=== PATIENT | female | born 1965 | race African-American/Black ===

== ENCOUNTER 2016-07-10 14:45 | Emergency (ER) | payer OTHER ==
[~2016-07-10] VITALS: Ht 175.3 cm; Wt 90.7 kg
--- NOTE | 2016-07-10 15:45 | ED NEURO DEFICIT/STROKE ---
History of Present Illness General Chief Complaint: General Adult Stated Complaint: BILATERAL UPPER EXT NUMBNESS X 3WKS Source: patient Exam Limitations: no limitations Vital Signs & Intake/Output Vital Signs & Intake/Output Vital Signs Date Time Temp Pulse Resp B/P B/P Pulse O2 O2 Flow FiO2 Mean Ox Delivery Rate 07/11 1943 98.0 77 18 176/88 98 Room Air 07/10 1817 97.7 78 18 174/87 100 Room Air 07/10 1650 98.0 69 16 186/94 99 Room Air 07/10 1615 Room Air 07/10 1519 97.5 88 18 220/120 95 Room Air Allergies Coded Allergies: NO KNOWN ALLERGIES (08/30/11) Reconcile Medications Amlodipine Besylate 5 MG TABLET 1 TAB PO DAILY HTN (Reported) Aspirin (Aspirin*) 325 MG TABLET 1 TAB PO DAILY HTN (Reported) Cyclobenzaprine HCl 5 MG TABLET 1 TAB PO TIDPRN PRN MUSCLE SPASM (Reported) Doxycycline Hyclate 100 MG CAPSULE 1 CAP PO BID PRN MENSTURAL CYCLES ( Reported) Hydrocodone/Acetaminophen (Vicodin 5-300 MG Tablet) 5 MG-300 MG TABLET 1 TAB PO BID PRN hand pain Ibuprofen 600 MG TABLET 1 TAB PO TID PRN hand pain with food Labetalol HCl 100 MG TABLET 1 TAB PO BID HTN (Reported) Montelukast Sodium 10 MG TABLET 1 TAB PO DAILY PRN ALLERLGIES (Reported) Olmesartan Medoxomil (Benicar) 40 MG TABLET 1 TAB PO DAILY HIGH CHOLESTEROL ( Reported) Spironolactone 25 MG TABLET 1 TAB PO DAILY HTN (Reported) Sumatriptan Succinate 100 MG TABLET 1 TAB PO AD PRN MIGRAINES (Reported) may repeat in 2 hours; do not exceed 200 mg in 24 hours Topiramate 50 MG TABLET 1 TAB PO BID MIGRAINES (Reported) Triage Note: C/O BILATERAL FOREARM/ HAND NUMBNESS, TINGLING X 2 WEEKS WITH INTERMITTANT PAIN. DENIES CHEST PAIN, WEAKNESS OR DIZZINESS. Triage Nurses Notes Reviewed? yes HPI: Ms. Collier is s 50 yo f w/ PMH of HTN, mitral regurg and migraines presenting to the emergency department for bilateral hand pain. Patient states she's had increased numbness, tingling and decreased strength in her bilateral hands for the past 3 weeks. She also endorses paresthesias such as pins and needles and tingling. Patient does not notice any modifying factors. She states when she wakes up in the morning she can barely feel her hands or move them. Patient states she previously has had coldness and decreased sensation in her bilateral feet. She's noticed a purplish spot on the medial portion of her right great toe. She also had some blisters on the bottoms of her left foot. She was told by another physician that she likely had mild frostbite approximately 3 weeks ago. Patient denies fevers or chills, chest pain, shortness of breath, abdominal pain, nausea, vomiting, diarrhea. Patient has a history of a remote fall approximately one year ago where she sustained some mild injury to her C- spine. She also has history of a slipped disc in her low lumbar area. Past History Travel History Traveled to [place] past 21 day No Medical History Any Pertinent Medical History? see below for history Neurological: migraine Cardiovascular: hypertension, mitral regurgitation Influenza Vaccine: 12/18/08 Surgical History Surgical History: none Psychosocial History Who do you live with Spouse Services at Home None What is your primary language Wolof Tobacco Use: Never used ETOH Use: denies use Illicit Drug Use: denies illicit drug use Family History Hx Contributory? No Review of Systems Review of Systems Constitutional: Reports: see HPI. Comments Review of systems: See HPI, All other systems negative. Constitutional, no chills no fever, no malaise no weight loss HEENT: No visual changes no sore throat no congestion, no ear pain Cardiovascular: No chest pain , no palpitation , no orthopnea Skin: no rashes, no change in skin Respiratory: No dyspnea no cough no sputum no hemoptysis GI: No nausea no vomiting, no diarrhea, no bloating/constipation : No dysuria No hematuria, no frequency, no discharge Muscle skeletal: No joint pain, no joint swelling, no back pain, no neck pain, Neurologic: + numbness/tingling in bilateral hands and feet. + cold hands/feet. 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 Heme/endocrine: No bruising no bleeding Immunology: No lymphadenopathy Physical Exam Physical Exam General Appearance: well developed/nourished, alert, awake, anxious Head: atraumatic, normal appearance Eyes: Bilateral: normal appearance, PERRL, EOMI. Ears, Nose, Throat: normal ENT inspection, moist mucous membrane, hearing grossly normal Neck: normal inspection, supple, full range of motion, trachea midline Respiratory: normal breath sounds, chest non-tender, no respiratory distress Cardiovascular: regular rate/rhythm Gastrointestinal: normal bowel sounds, soft, non-tender Back: normal inspection, normal range of motion Extremities: normal range of motion Psychiatric: awake, alert, oriented x 3 Cranial Nerves: normal hearing, normal speech, PERRL Motor/Sensory: decreased sensation bilaterally over the distal hand both palmar and plantar services. Decreased sensation in bilateral feet. unable to distinguish sharp from light touch in bilateral feet as well as bilateral hands. Both hands and feet are cool to touch compared to more proximal portion of extremity Skin: warm/dry, ecchymosis, patient has 3 healing superficial ulcers to her left toes 3/4/5 on the plantar surface with a purple discoloration. Bilaterally cracked and fissured skin, hands show bilateral dry skin as well as some mottling. Evidence of large knuckles bilaterally Core Measures CVA/TIA Diagnosis: No Severe Sepsis Present: No Septic Shock Present: No Progress Differential Diagnosis: electrolyte imbalance, stroke, vertebrobasilar insuff., diffuse vasculitis, Raynaud phenomenon, CREST syndrome, posterior cord syndrome Plan of Care: Orders Procedure Date/time Status URINE 07/10 1643 Complete PHOSPHORUS 07/10 1602 Complete MAGNESIUM 07/10 1602 Complete HIGH SENSITIVITY CRP 07/10 1602 Complete WESTERGREN SED RATE 07/10 1602 Complete COMPREHENSIVE METABOLIC PANEL 07/10 1602 Complete CBC WITHOUT DIFFERENTIAL 07/10 1602 Complete CALCIUM 07/10 1602 Complete ALKALINE PHOSPHATASE 07/10 1602 Complete EKG 07/10 1521 Active Laboratory Tests 07/10/16 1652: Urine Test NEGATIVE 07/10/16 1611: Anion Gap 13, Estimated GFR 59 L, BUN/Creatinine Ratio 15.0, Glucose 100 H, Calcium 9.7, Phosphorus 3.3, Magnesium 1.9, Total Bilirubin 0.5, AST 24, ALT 36, Alkaline Phosphatase 74, C-React Prot High Sens 2.3, Total Protein 7.9, Albumin 4.5, Globulin 3.4, Albumin/Globulin Ratio 1.3, CBC w Diff NO MAN DIFF REQ, RBC 5.45 H, MCV 77.5 L, MCH 25.4 L, RDW 18.0 H, MPV 8.4, Gran % 56.1, Lymphocytes % 33.5, Monocytes % 6.9, Eosinophils % 2.7, Basophils % 0.8, Absolute Granulocytes 2.7, Absolute Lymphocytes 1.6, Absolute Monocytes 0.3, Absolute Eosinophils 0.1, Absolute Basophils 0, PUBS MCHC 32.8 L, ESR Westergren 9 Patient is a well-appearing 50-year-old female with past medical history of hypertension and mitral regurg presenting with bilateral hand pain. Hands have skin changes with fissuring as well as discoloration, mildly paler than the rest of her skin. Hands are cold to touch. More significant is the fact the patient 's feet bilaterally are also cold to touch with decreased sensation and inability to differentiate between sharp or soft. Patient has 3 small lesions on plantar surface of toes 3/4/5 of L foot that are purplish in color and approx 2-3 mm.overall presentation is most concerning for an ongoing vasculitis versus a ordered compression syndrome resting on the posterior columns. Given the skin changes on the hands and feet, it is also possible that this patient has more vasculitis with small vessel disease. Patient states that the skin changes on her hands are somewhat chronic and she's had them for most of her life however the pain is relatively new and the skin changes have been worsening over the past few months. CT scans are otherwise unremarkable for acute findings. Positive for chronic arthitis changes. Labs show low MCV and MCH. Remainder of labs are otherwise unremarkable. Patient's pain improved some with morphine but did not completely resolve. Symptoms felt actually significantly better while holding a warm compress or heat pad on her hands and feet. Will discharge the patient with follow-up with her PCP to get a referral for rheumatology at it as this is most likely some sort of vasculitis. Discussed this at length with the patient and she is okay with this plan. 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 Patient given Motrin and Vicodin for pain. (NORA BURCIAGA,YAEL) Diagnostic Imaging: Viewed by Me: CT Scan. Discussed w/RAD: CT Scan. Radiology Impression: No acute noncontrast CT imaging abnormalities within the cervical spine. No evidence of cervical spine fracture. No gross evidence of disc herniation or cervical cord compression. 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 1. Thoracic vertebra are intact. No acute findings in the mildly degenerated thoracic spine. No intradural masses are identified. 2. Within the lumbar spine, there is multifactorial, mild central canal stenosis at L3-L4 and there is 2-3 mm of degenerative anterolisthesis of L3 on L4. Otherwise, lumbar alignment is anatomic. No evidence of high-grade central canal stenosis or high-grade neural foraminal in the lumbar spine. There is no evidence of osseous or soft tissue compression on the conus medullaris. Note that if there is a clinical suspicion for intrinsic pathology of the spinal cord, then CT imaging would not detect myelopathy, and MR imaging may be helpful for further assessment. 3. Small, 0.3 cm calyceal stone within the interpolar region of the right kidney. Initial ED EKG: normal axis, normal intervals, normal p-waves, normal QRS complex, normal sinus rhythm, NSR, no ST T wave changes Departure Departure Time of Disposition: 1926 Disposition: HOME OR SELF CARE Condition: Stable Clinical Impression Primary Impression: Bilateral hand pain Secondary Impressions: Cold extremities Referrals: MICHAEL ALSTON MD (PCP/Family) Additional Instructions: Please follow-up with your primary care doctor as soon as possible to get a referral for a ambulance assistant. It will be important that you get worked up for various types of vasculitis as I believe that that this is what is going on currently. You can use ibuprofen 600 mg for the pain every 6-8 hours. You can also use heat pads to help with the pain. I have given you a few doses of Vicodin for any breakthrough pain. Anytime you use the Vicodin, please use MiraLAX or Colace to prevent constipation as all narcotics will cause constipation. If you have changes in your ability to move your fingers sensation or any other concerning symptoms please return to the emergency department for reevaluation. Departure Forms: Customer Survey General Discharge Information RELEASE- WORK for 3 days. May Return to Work today: No Number of days excused from work: 2 (Including today's visit) Prescriptions: Current Visit Scripts Ibuprofen 1 TAB PO TID PRN hand pain #30 TAB with food Hydrocodone/Acetaminophen (Vicodin 5-300 MG Tablet) 1 TAB PO BID PRN hand pain #10 TAB
[2016-07-10 16:35] LABS: ABSOLUTE BASOPHIL COUNT 0 /CUMM (0.0-0.2); ABSOLUTE EOSINOPHIL COUNT 0.1 /CUMM (0.0-0.7); ABSOLUTE GRANULOCYTE CT 2.7 /CUMM (1.4-6.5); ABSOLUTE LYMPH COUNT 1.6 /CUMM (1.2-3.4); ABSOLUTE MONOCYTE COUNT 0.3 /CUMM (0.10-0.60); BASOPHIL % 0.8 % (0.0-2.0); EOSINOPHIL % 2.7 % (0-5); HEMATOCRIT 42.2 % (37-47); MEAN CORPUSCULAR HGB 25.4 PG (27.0-31.0); MEAN CORPUSCULAR HGB CONC 32.8 G/DL (33.0-37.0); MEAN CORPUSCULAR VOLUME 77.5 FL (81.0-99.0); MEAN PLATELET VOLUME 8.4 FL (7.4-10.4); PLATELET COUNT 300 /CUMM (130-400); RED BLOOD CELL CT 5.45 /CUMM (4.20-5.40); WHITE BLOOD CELL COUNT 4.9 /CUMM (4.8-10.8)
[2016-07-10 16:52] LABS: GRANULOCYTE % 56.1 % (42.2-75.2)
--- NOTE | 2016-07-10 17:56 | CT SCAN REPORT ---
EXAMINATION: CT CERVICAL SPINE WITHOUT CONTRAST CLINICAL INFORMATION: Bilateral hand and foot numbness. COMPARISON: None TECHNIQUE: Noncontrast multidetector CT imaging of the cervical spine was performed using standard protocol. Axial images are presented at 0.625 mm slice thickness and 2.5 mm slice thickness. Coronal and sagittal reformatted images were generated and reviewed. DLP: 322 mGy-cm FINDINGS: Skull base is intact. The visualized sphenoid sinus, mastoid air cells and middle ear cavities are clear. The occipital condyles, atlas, axis and atlantoaxial articulation are intact. No acute fracture or prevertebral soft tissue swelling. Cerebral spinal fluid space appears preserved around the cervical spinal cord. No focal cord compression is identified. At the left facet joint of C2-C3, there were articular surface erosions and osteophyte formation. The right facet joint is unremarkable. No periarticular fluid collection at the facet joints. There is 0.2 cm anterior subluxation of C2 on C3. C2-C3 disc is unremarkable. At C3-C4 and C4-C5, the intervertebral discs and facet joints are unremarkable. At C5-C6, there is a small posterior disc osteophyte complex without significant narrowing of the central canal or neural foramina. C6-C7 and C7-T1 discs and facet joints are unremarkable. No paraspinal mass or paraspinal fluid collection. The visualized lung apices are normal. Thyroid gland is unremarkable. Lymph nodes within the visualized left neck are in the normal size range. IMPRESSION: No acute noncontrast CT imaging abnormalities within the cervical spine. No evidence of cervical spine fracture. No gross evidence of disc herniation or cervical cord compression. 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
--- NOTE | 2016-07-10 18:12 | CT SCAN REPORT ---
EXAMINATION: CT THORACIC SPINE WITHOUT IV CONTRAST CT LUMBAR SPINE WITHOUT IV CONTRAST CLINICAL INFORMATION: Weakness in feet and hands. Evaluate for cord compression. COMPARISON: None TECHNIQUE: Multidetector CT imaging of the thoracic spine and lumbar spine was performed using 0.625 mm collimation. Axial images are presented at 0.625 mm, 1.25 mm and 2.5 mm slice thickness. Coronal and sagittal reformatted images were generated and reviewed. DLP: 1963 mGy-cm (total) FINDINGS: THORACIC SPINE: Thoracic vertebra have normal height and alignment. The anterior and posterior elements are intact. At T3-T4, T4-T5 and T5-T6, there is mild degenerative disc space narrowing and traction osteophyte formation. The cerebral spinal fluid space appears preserved around the thoracic spinal cord, which is suboptimally evaluated given the inherent limitations of noncontrast imaging. No evidence of an intradural mass or paraspinal soft tissue mass. No paraspinal fluid collection. LUMBAR SPINE: The conus medullaris appears to terminate at the L1-L2 level. Note that the spinal cord is suboptimally visualized given the inherent limitations of CT imaging. There is no gross evidence for cord compression. The lumbar vertebra have normal height. The anterior and posterior elements are intact. There is 2-3 mm of degenerative anterolisthesis at L3-L4. Otherwise, lumbar alignment is anatomic. At L1-L2 and L2-L3, facet joints and intervertebral discs are unremarkable. At L3-L4, there is moderate facet arthropathy, ligamentum flavum hypertrophy, disc bulge and traction osteophyte formation resulting in multifactorial, mild central canal stenosis. Bulging disc material encroaches upon the inferior aspect of each neural foramen. There is no high-grade foraminal stenosis. There is no convincing impingement upon the exiting L3 nerve roots. At L4-L5, there is mild facet arthropathy, mild ligamentum flavum hypertrophy and minimal disc bulge. No significant narrowing of the central canal or foramina at this level. At L5-S1, there is mild bilateral facet arthropathy and mild disc bulge producing moderate left foraminal stenosis. There is mild osteoarthrosis of sacroiliac joints. Abdominal aorta is normal in caliber. Small, 3 mm calyceal stone is present within the interpolar right kidney. IMPRESSION: 1. Thoracic vertebra are intact. No acute findings in the mildly degenerated thoracic spine. No intradural masses are identified. 2. Within the lumbar spine, there is multifactorial, mild central canal stenosis at L3-L4 and there is 2-3 mm of degenerative anterolisthesis of L3 on L4. Otherwise, lumbar alignment is anatomic. No evidence of high-grade central canal stenosis or high-grade neural foraminal in the lumbar spine. There is no evidence of osseous or soft tissue compression on the conus medullaris. Note that if there is a clinical suspicion for intrinsic pathology of the spinal cord, then CT imaging would not detect myelopathy, and MR imaging may be helpful for further assessment. 3. Small, 0.3 cm calyceal stone within the interpolar region of the right kidney.
[2016-07-10] MEDS ORDERED: AMLODIPINE BESYL5 M1 PO (18:34)
[2016-07-10] MEDS ORDERED: LABETALOL HCL100 M1 PO (18:35)
[2016-07-10] MEDS ORDERED: SPIRONOLACTONE25 M1 PO (18:35)
[2016-07-10] MEDS ORDERED: BENICAR40 M1 PO (18:35)
[2016-07-10] MEDS ORDERED: TOPIRAMATE50 M1 PO (18:36)
[2016-07-10] MEDS ORDERED: ASPIRIN325 M2 PO (18:36)
[2016-07-10] MEDS ORDERED: MONTELUKAST SOD10 M1 PO (18:36)
[2016-07-10] MEDS ORDERED: CYCLOBENZAPRINE5 M2 PO (18:40)
[2016-07-10] MEDS ORDERED: SUMATRIPTAN SU100 M1 PO (18:41)
[2016-07-10] MEDS ORDERED: DOXYCYCLINE HY100 M2 PO (18:42)
[2016-07-10] MEDS ORDERED: IBUPROFEN600 M1 PO (19:35)
[2016-07-10] MEDS ORDERED: VICODIN 5-3001 EACH PO (19:35)
[2016-07-10 19:44] VITALS: BP 176/88
== END 2016-07-10 19:44 ==
LOC: ERH 14:45
PROVIDERS: Emergency Medicine
DX: M79.641 Pain in right hand (principal); M79.642 Pain in left hand; R23.9 Unspecified skin changes
CPT/HCPCS: 81025; 93005; 93010; 96374